=== PATIENT | female | born 1960 | race Hispanic/Latino ===

== ENCOUNTER → 2024-09-30 12:44 | Outpatient (REF) | payer OTHER, SELFPAY | LOC: WOUND 12:44 | PROVIDERS: ATTENDING PHYSICIAN Surgery | DX: S21.201A Unspecified open wound of right back wall of thorax without penetration into thoracic cavity, initial encounter (principal); E11.9 Type 2 diabetes mellitus without complications; Z79.4 Long term (current) use of insulin; Z98.890 Other specified postprocedural states; X58.XXXA Exposure to other specified factors, initial encounter | CPT/HCPCS: 99213 ==

== ENCOUNTER 2024-10-07 13:27 | Day surgery (SDC) | payer OTHER, SELFPAY ==
[2024-10-07] VITALS (10 sets, daily range): BP systolic 115–165; BP diastolic 56–89; BMI 26.9
[2024-10-07 13:43] LABS: Glucose - Point of Care 146 mg/dl (70-99)
[2024-10-07] MEDS: NORMOSOL-R/PLASMALYTE-A 1000 IV (13:43)
[2024-10-07] MEDS: TYLENOL 1000 MG PO (13:51)
[2024-10-07] MEDS: VANCOCIN 200 IV (14:25)
--- NOTE | 2024-10-07 14:54 | W.SUR.PREOP ---
Pre-Operative Surgical Note
-
I have examined this patient prior to the performance of the scheduled procedure.
The patient's condition is unchanged from the time of the current History and
Physical and the patient is able to undergo the scheduled procedure.
[2024-10-07 16:42] LABS: Glucose - Point of Care 165 mg/dl (70-99)
--- NOTE | 2024-10-07 16:46 | W.IMMPOSTOP ---
Surgical Immed Post Op Note
-
Primary Surgeon: Donny Jaramillo MD
Assisting Surgeon: None
Pre-op Diagnosis: Left upper back necrotizing soft tissue infection
Post-op Diagnosis: Same
Procedure Performed: Incision and debridement of left upper back necrotizing soft tissue infection
Anesthesia Type: General
Specimen / Cultures:
1. Wound culture for aerobic, anaerobic and Gram stain
2. left upper back tissue for path
3. Left upper back skin lesion
Estimated Blood Loss: 11 cc
Complications: None
Operative Findings: Necrotizing soft tissue infection of the subcutaneous tissue extending deep into the underlying muscles of the left upper back. There was a significant amount of necrotic appearing fascia that was debrided. Additional skin
including skin back lesion were removed. The wound was debrided back to healthy tissue until we achieve the final dimensions of 11 x 8 cm. A Pulsavac and curettes were used to debride the cavity fully of necrotic tissue. Hemostasis was achieved.
1 g of Michael was used to assist with this. The wound was then packed with Betadine soaked gauze and covered wet to dry.
POST OP PLAN:
Will admit postoperatively to general surgery for IV antibiotics and wound care
Imaging: None
Labs: Routine AM
Diet: Regular
Analgesia: Tylenol 650mg q6 Kaylee, Dilaudid 0.5mg q2h PRN
Neuro/vascular checks: q4h
AC/AP: Hold Therapeutic AC, Ok for DVT PPx
Activity: Ad Tori
Wound/Incisions/Drains: Routine wet-to-dry, wound care consult placed
Abx: Will resume IV vancomycin given history of MRSA. ID consult placed
Dispo: RNF, anticipate hospital stay 1 to 2 days.
[2024-10-07] MEDS: SUBLIMAZE 25 MCG IV (16:52)
--- NOTE | 2024-10-07 16:53 | OR.RPT ---
Operative Report
Operative Report
Patient Name: Zunilda Mcgee
: 1960
Date of Operation: 10/07/2024
Preoperative Diagnosis: Left upper back necrotizing soft tissue infection
Postoperative Diagnosis: Same
Procedure(s):
Incision and debridement of left upper back necrotizing soft tissue infection
Surgeon(s):
Dr. Jaramillo
Commercial Plumber(s):
MICHELINE Rivera
Anesthesia: General
Estimated Blood Loss: 11 cc
Urine Output: None
Drains/Lines/Implants: None
Specimen / Cultures:
1. Wound culture for aerobic, anaerobic and Gram stain
2. Left upper back tissue for path
3. Left upper back skin lesion
Indication for surgery:
This is a 64-year-old female with a known left upper back abscess initially underwent an operative debridement on 09/27/2024. She initially did well and was discharged the next day. I saw her back in the office and was concern for developing
necrotizing soft tissue infection. After review of their therapeutic options, they elected to pursue operative incision and drainage as well as debridement.
Operative Findings: Necrotizing soft tissue infection of the subcutaneous tissue extending deep into the underlying muscles of the left upper back. There was a significant amount of necrotic appearing fascia that was debrided. Additional skin
including skin back lesion were removed. The wound was debrided back to healthy tissue until we achieve the final dimensions of 11 x 8 cm. A Pulsavac and curettes were used to debride the cavity fully of necrotic tissue. Hemostasis was achieved.
1 g of Michael was used to assist with this. The wound was then packed with Betadine soaked gauze and covered wet to dry.
Details of the operation:
After successful induction of general anesthesia, the patient was placed in the prone position. The patient's back was prepped a with Betadine nd draped. A team timeout was performed confirming administration of DVT prophylaxis, and IV
antibiotics. The skin was cleaned with alcohol and anesthetized with 10cc of 1% lidocaine with epi. A prior incision was extended in the transverse direction. We encountered 2 separate abscess pockets as well as a significant amount of
necrotizing soft tissue in the subcutaneous and deeper muscular layers. Much of the fascia surrounding this tissue was debrided until we got to healthy tissue. The debridement was performed using curettes, Pulsavac and sharp dissection with a 15
blade. A repeat wound culture was performed and some tissue was sent for path. There was also a left upper back skin lesion that was sent for path though, this appeared benign. The final dimensions of the wound were 11 x 8 cm. One gram of Michael
was sprayed over the field to assist with hemostasis. The wound was then packed with Betadine soaked kerlix and covered with dry gauze. The patient tolerated the procedure well, and returned to the Recovery Room in stable condition. Sponge and
instrument counts were correct.
I was the attending physician and performed the procedure with assistance of the PA above. The assistance of MICHELINE Rivera was required due to the complexity of the procedure. During the procedure Shyann assisted with retraction, resection, and
closure of the wound. I was present for all portions of the case.
Donny Jaramillo MD
[2024-10-07] MEDS: TORADOL 10 MG IV ×2 (16:55→22:05)
[2024-10-07] MEDS: TYLENOL 650 MG PO ×2 (19:52→23:22)
[2024-10-08 03:20] VITALS: BP 126/90
[2024-10-08] MEDS: TYLENOL PO ×2 (03:24→12:19)
[2024-10-08] MEDS: TORADOL 10 MG IV ×3 (04:23→16:41)
[2024-10-08 07:09] VITALS: BP 125/71
[2024-10-08 07:28] LABS: % Basophils 0.5 % (0-2); % Eosinophils 0.6 % (0-6); % Immature Granulocytes 0.5 % (0-0.5); % Monocytes 6.8 % (1.7-9.3); % Neutrophils 72.6 % (42.2-75.2); Absolute Basophils 0.1 10^3/uL (0-0.2); Absolute Eosinophils 0.1 10^3/uL (0-0.7); Absolute Immature Granulocytes 0.1 10^3/uL (0-0.05); Absolute Lymphocytes 2.4 10^3/uL (1.2-3.4); Absolute Monocytes 0.9 10^3/uL (0.1-0.6); Absolute Neutrophils 9.1 10^3/uL (1.4-6.5); Hematocrit 35.6 % (37.0-47.0); Hemoglobin 11.3 g/dL (12.0-16.0); Mean Corp Hgb Conc. 31.7 g/dL (33.0-37.0); Mean Corpuscular Hgb 29.4 pg (27.0-31.0); Mean Corpuscular Volume 92.7 fL (81.0-99.0); Mean Platelet Volume 9.7 fL (7.4-10.4); Nucleated Red Blood Cells % 0 %; Platelet Count 431 10^3/uL (130-400); Red Blood Cell Count 3.84 10^6/uL (4.20-5.40); Red Cell Dist. Width 12.7 % (11.5-14.5); White Blood Cell Count 12.6 10^3/uL (4.8-10.8)
[2024-10-08 07:42] LABS: Glucose - Point of Care 158 mg/dl (70-99)
[2024-10-08 07:54] LABS: Blood Urea Nitrogen 13 mg/dl (7-17); Carbon Dioxide 29 mmol/L (22-30); Chloride 101 mmol/L (98-107); Estimated Creatinine Clearance 86 ml/min; Glucose 149 mg/dl (70-99); Potassium 4.4 mmol/L (3.5-5.1); Sodium 137 mmol/L (135-145); eGFR > 60.00
[2024-10-08] MEDS: NOVOLOG FLEXPEN-MODERATE RESISTANCE 1 UNITS SC ×2 (08:36→12:19)
[2024-10-08] MEDS: NOVOLOG FLEXPEN 9 UNITS SC (08:39)
[2024-10-08] MEDS: TYLENOL 650 MG PO ×2 (08:40→15:10)
--- NOTE | 2024-10-08 09:31 | W.PN.GS2 ---
Today's Communication / Plan
-
Continue abx/local wound care
Assessment / Plan
-
64 yo diabetic female presenting for management of a left upper back abscess/lesion now POD #1 Incision and debridement of left upper back necrotizing soft tissue infection
H/O prior procedure for drainage on 09/27/24 with Chris placement, drain now removed. h/o MRSA in the wound
AFVSS
Leukocytosis improving
OR cx, path pending
--ID consulted for assistance with ABX
--CM to arrange for assistance with OP wound care
--Local wound care with Dakin's soaked kerlix packing to wound, dressing changes BID
--Continue diabetic diet with scheduled insulin and sliding scale
--Await wound cx
--Lovenox/scds for vte ppx
Subjective Data
-
Date of Service: October 08, 2024
Patient seen and examined at bedside. Minimal post operative pain, but uncomfortable with dressing changes. Denies fevers/chills.
Objective Data
-
Intake and Output
10/07/24 10/08/24 10/09/24
06:59 06:59 06:59
Intake Total 340 / 340
Balance 340 / 340
Intake:
Oral fluids 240 / 240
IV fluids (Total) 100 / 100
Normosol 100 / 100
Other:
Number of approximated LARGE 1
amounts of urine
Vital Signs
Temp Pulse Resp BP Pulse Ox
98 F 65 16 125/71 98
10/08/24 07:09 10/08/24 07:09 10/08/24 07:09 10/08/24 07:09 10/08/24 07:09
Lab Results
10/08/24 06:39
10/08/24 06:39
Calcium 9.0 mg/dl (8.4-10.2) 10/08/24 06:39
Physical Exam
-
Gen: NAD
Back: Packing removed with clean, granulating wound bed noted. Approximately 11 x 8 cm, with tunnelling upwards and laterally
Patient has a larry catheter: No
Patient has a central line: No
[2024-10-08 11:39] LABS: Glucose - Point of Care 178 mg/dl (70-99)
--- NOTE | 2024-10-08 14:33 | CON.ID ---
Consultation
-
Date/Time Consultation Requested: 10/07/2024 1632
Date/Time Consultation Performed: 10/08/2024 1433
Requesting Provider: Dr. Jaramillo
Performing Provider: Dr. Can
Reason for Consultation: SSTI
Chief Complaint / Past History
History of Present Illness
Zunilda Denney is a 64-year-old female being evaluated at the request of Dr. Jaramillo in regards to a back infection. History is obtained from chart review, along with patient interview.
The patient was admitted to [facility] on 09/23 after noticing a 'blackhead' on her back 6 days prior. At that time it was thought to be a possible ingrown hair, but it grew in size and discomfort. The patient initially was on amoxicillin
but the swelling persisted and she came to the ER.
Evaluation in ER revealed DKA. Additionally, she underwent incision and drainage of the back area, with significant amount of purulence. The patient was started on vancomycin. At the time of discharge she was transitioned to oral doxycycline and
advised to follow-up with general surgery 1 week after discharge.
She was seen in the outpatient setting by surgery, and found to have ongoing necrotic tissue. She was brought back into the hospital for further incision and drainage, along with debridement. Infectious Diseases is now asked to comment upon
further antimicrobial management.
Past History
Additional Past Medical History:
Diabetes mellitus
Additional Past Surgical History:
x 3
Cholecystectomy
Allergy History:
latex Allergy (Verified 10/07/24 13:36)
Rash
Medications Reviewed: Yes
Current Antibiotics:
None
Social History
Tobacco: Non-Smoker
Alcohol: None
Drug: None
Living: With Family
Employment: Not Employed
Family History
Family History: Not Pertinent
Review of Systems
Vital Signs
Temp Pulse Resp BP Pulse Ox
98 F 65 16 125/71 98
10/08/24 07:09 10/08/24 07:09 10/08/24 07:09 10/08/24 07:09 10/08/24 07:09
Physical Exam
Physical Exam
Constitutional: No Acute Distress, Comfortable and Non-toxic
Eyes: No Conjunctival Hemorrhage and Sclera Anicteric
Oral: No Thrush and No Ulcers
Cardiovascular: Regular Rate and S1/S2; Negative S3/S4
Pulmonary: Clear; Negative Wheezes or Rales
Gastrointestinal: Soft, Non Tender, Non Distended and Normal Bowel Sounds
Extremities: Negative Edema or Clubbing
Wound: Other (Left scapular wound with packing in place. Minimal periwound erythema. Significant purulence or drainage.)
Neurological: Awake and Alert
Psychological: Calm
.
Lab / Diagnostic Study Results
10/08/24 06:39
10/08/24 06:39
Abs Immat Gran (auto) 0.1 10^3/uL (0-0.05) H 10/08/24 06:39
Absolute Neuts (auto) 9.1 10^3/uL (1.4-6.5) H 10/08/24 06:39
Absolute Lymphs (auto) 2.4 10^3/uL (1.2-3.4) 10/08/24 06:39
Absolute Monos (auto) 0.9 10^3/uL (0.1-0.6) H 10/08/24 06:39
Absolute Basos (auto) 0.1 10^3/uL (0-0.2) 10/08/24 06:39
Immature Gran % 0.5 % (0-0.5) 10/08/24 06:39
Neutrophils % 72.6 % (42.2-75.2) 10/08/24 06:39
Lymphocytes % 19.0 % (20.5-51.1) L 10/08/24 06:39
Monocytes % 6.8 % (1.7-9.3) 10/08/24 06:39
Eosinophils % 0.6 % (0-6) 10/08/24 06:39
Basophils % 0.5 % (0-2) 10/08/24 06:39
Microbiology Results
Micro:
10/07/24 15:30 Anaerobic Culture - Preliminary
Abscess Culture pending. Anaerobic cultures are examined after 3
days incubation. Additional information to follow.
10/07/24 15:30 Tissue Culture - Preliminary
Abscess Staphylococcus aureus
Gram Stain - Preliminary
Imaging:
09/24/2024 CT chest with IV contrast: Posterior superior left midline upper back infection with intramuscular extension to the left chest PCS. No focal drainable collection. Film personally viewed.
Assessment / Plan
Right scapular abscess
- s/p debridement
Suspected myositis
Leukocytosis; likely secondary to recent surgery
Diabetes mellitus; uncontrolled (HbA1c = 12)
Recommendations:
Continue with vancomycin while inpatient.
At discharge, would change to Bactrim DS 2 tabs BID for an additional 7 to 10 days.
Alternatively, could use linezolid 600 mg BID (preferable, but more expensive)
Ongoing local wound care.
[2024-10-08 15:04] VITALS: BP 118/63
--- NOTE | 2024-10-08 15:21 | PHA.VAN.IN ---
Assessment
- Assessment
Renal Function: Appears similar to baseline
Maximum Temperature: 98.2
Minimum Temperature: 97.7
AUC Dosing Plan
- Dosing Variables
Dosing Weight (kg): 68.85
Dosing CrCl (ml/min): 86
Vd coefficient (L/kg): 0.7
- Empiric Dosing
Initial / Loading Dose: 1gm and then another 1gm on 10/08
Maintenance Regimen: 750mg Q12H
Estimated AUC (mcg*h/mL): 426
Estimated Peak (mcg*h/mL): 26.1
Estimated Trough (mcg/ml): 11.3
Estimated Half Life (H): 9.1
- Monitoring
No levels ordered at this time: consider levels in next few days
Pharmacokinetics Vancomycin I
- -
Patient Age: 64
Patient Sex: Male
Vancomycin Day #: 1
Indication: Skin And Soft Tissue
Requesting Provider: Pamella
Pertinent Antimicrobial Allergies:
latex
Height / Weight:
Height 5 ft 3 in
Actual Weight 68.85 kg
- Vital Signs / Lab Results
Temp Pulse Resp BP Pulse Ox
98.1 F 69 16 118/63 99
10/08/24 15:04 10/08/24 15:04 10/08/24 15:04 10/08/24 15:04 10/08/24 15:04
Lab Results - Hematology
10/08/24
06:39
WBC 12.6 H
Lab Results - Chemistry
10/08/24
06:39
BUN 13
Creatinine 0.5 L
Estimated Creat Clear 86
Microbiology Results
10/07/24 15:30 Anaerobic Culture - Preliminary
Abscess Culture pending. Anaerobic cultures are examined after 3
days incubation. Additional information to follow.
10/07/24 15:30 Tissue Culture - Preliminary
Abscess Staphylococcus aureus
Gram Stain - Preliminary
--- NOTE | 2024-10-08 15:37 | W.DS.TRANS ---
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
-
Discharge Instructions:
Sleep Apnea Risk Intermediate
Discharge Diagnosis/Procedures Left upper back abscess/necrotizing soft tissue
infection. Incision and debridement of left
upper back soft tissue infection
Diet Diabetic, Carb Controlled
Additional Diets eat plenty of protein to help heal your wound
Activity No restrictions
Driving Restrictions As prior to admission
Bathing Restrictions OK to Shower
Wound Care Lightly moisten kerlix gauze roll and pack
inside of wound lightly. Cover with silicone or
gauze dressing. Change daily after showering and
as needed if soiled
Instructions:
Stand-Alone Forms:
Changes to Home Medications: No
Discharge Medications:
DC Medications w/original date entered in [id number]
blood sugar diagnostic (ReliOn Prime Test Strips) #100 ea 09/28/24
blood-glucose meter (ReliOn All-In-One Meter kit) #1 ea 09/28/24
pen needle, diabetic 32 gauge x 5/32' (Pen Needle) #100 ea 09/28/24
insulin NPH-regular 70-30 U-100 insulin 100 unit/mL subcutaneous pen (Novolin 70-30 FlexPen U-100 Insulin) 18 unit SC BID@0800,1700 10/06/24
metformin 500 mg tablet 500 mg PO BID 10/06/24
acetaminophen 325 mg tablet (Tylenol) 325 mg PO DAILY PRN pain 10/07/24
sodium chloride-hypochlorous acid 0.033 % irrigation solution (Vashe) 1 irrig irrigation DAILY #250 mL 10/08/24
sulfamethoxazole 800 mg-trimethoprim 160 mg tablet 1 tab PO Q12H #20 tabs 10/08/24
Home Medication Changes
Pending Results: No
--- NOTE | 2024-10-08 16:51 | CM ---
Met with patient to obtain information for assessment. Patient's spouse was at bedside and he translated. Patient's spouse stated that patient lives with him in a single home with two stories and one step to enter. She is independent with her ADLs,
personal care, dressing and bathing. 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 He stated that she had VN in the past through . She has never been to a SNF.
Patient is following up with [facility] for [facility] care and denied needs.
Plan: Case management will continue to follow and assist with discharge planning. Home, f/u [facility].
== END 2024-10-08 17:09 | disposition home or self-care (01) ==
LOC: SDS 13:27
PROVIDERS: ATTENDING PHYSICIAN Surgery; CONSULT PHYSICIAN Internal Medicine Infectious Disease
DX: L02.212 Cutaneous abscess of back [any part, except buttock and flank] (principal); I96 Gangrene, not elsewhere classified; S21.201S Unspecified open wound of right back wall of thorax without penetration into thoracic cavity, sequela; X58.XXXS Exposure to other specified factors, sequela
CPT/HCPCS: 11043; 88304; 80048; 82962; 85025; 87070; 87075; 87076; 87147; 87176; 87186; 87205

== ENCOUNTER → 2024-12-09 09:41 | Outpatient (REF) | payer OTHER, SELFPAY ==
[2024-12-09 10:40] LABS: % Basophils 0.5 % (0-2); % Eosinophils 1.7 % (0-6); % Immature Granulocytes 0.2 % (0-0.5); % Monocytes 5.6 % (1.7-9.3); Absolute Basophils 0.1 10^3/uL (0-0.2); Absolute Eosinophils 0.2 10^3/uL (0-0.7); Absolute Lymphocytes 2.8 10^3/uL (1.2-3.4); Absolute Monocytes 0.6 10^3/uL (0.1-0.6); Absolute Neutrophils 6.5 10^3/uL (1.4-6.5); Hemoglobin 13.8 g/dL (12.0-16.0); Mean Corp Hgb Conc. 32.9 g/dL (33.0-37.0); Mean Corpuscular Hgb 29.4 pg (27.0-31.0); Mean Corpuscular Volume 89.4 fL (81.0-99.0); Mean Platelet Volume 10.8 fL (7.4-10.4); Nucleated Red Blood Cells % 0 %; Platelet Count 326 10^3/uL (130-400); Red Cell Dist. Width 12.6 % (11.5-14.5); White Blood Cell Count 10.1 10^3/uL (4.8-10.8)
[2024-12-09 11:36] LABS: ALT (SGPT) 16 U/L (0-35); AST (SGOT) 18 U/L (14-36); Albumin 4.2 g/dl (3.5-5.0); Alkaline Phosphatase 116 U/L (38-126); Blood Urea Nitrogen 13 mg/dl (7-17); Calcium 9.5 mg/dl (8.4-10.2); Carbon Dioxide 27 mmol/L (22-30); Chloride 104 mmol/L (98-107); Glucose 104 mg/dl (70-99); Potassium 4.2 mmol/L (3.5-5.1); Sodium 143 mmol/L (135-145); Total Bilirubin 0.6 mg/dl (0.2-1.3); Total Protein 7.5 g/dl (6.3-8.2); eGFR > 60.00
[2024-12-09 12:13] LABS: Glycohemoglobin (HgbA1c) 6.3 % (4.0-5.6)
== END ==
LOC: CLINIC 09:41
PROVIDERS: ATTENDING PHYSICIAN Nurse Practitioner Family
DX: E11.65 Type 2 diabetes mellitus with hyperglycemia (principal)
CPT/HCPCS: 36415; 80053; 83036; 85025

== ENCOUNTER → 2025-01-20 10:43 | Outpatient (REF) | payer OTHER, SELFPAY ==
[2025-01-20 11:59] LABS: HDL Cholesterol 50 mg/dl; LDL Cholesterol, Calculated 144 mg/dl; Total Cholesterol 208 mg/dl (50-199); Triglyceride 72 mg/dl (10-149); Very Low Density Lipoprotein 14 mg/dl (0-30)
== END ==
LOC: CLINIC 10:43
PROVIDERS: ATTENDING PHYSICIAN Internal Medicine
DX: E11.65 Type 2 diabetes mellitus with hyperglycemia (principal)
CPT/HCPCS: 36415; 80061